=== PATIENT | male | born 1980 | race African-American/Black ===

== ENCOUNTER 2020-08-23 16:39 | Emergency (ER) | payer OTHER, BC ==
[2020-08-23] MEDS ORDERED: Sodium Chloride 0.9% 10 ML Syringe FLUSH PRN (18:11)
[2020-08-23] MEDS ORDERED: Iopamidol 612 MG/ML 100 ML Bottle IVPUSH ONE (18:11)
--- NOTE | 2020-08-23 19:00 | CT ---
CT cervical spine Technique: Multiple axial sections were obtained from above C1 inferiorly to the mid T3 level. Reconstructed sagittal and coronal images were obtained. Findings: Vertebral body heights and disc spaces are maintained. No bony central or bony neural foraminal stenosis is seen. No fracture is appreciated. Minimal ligamentum nuchal calcification is seen. No abnormal subluxation is seen. Impression: 1. Nothing acute is identified on CT study of the cervical spine. Diagnostic code #2 Study was dictated in MDT
--- NOTE | 2020-08-23 19:03 | CT ---
Head CT Technique: Multiple axial sections to the brain were obtained. Intravenous contrast was not utilized. Comparison: No prior intracranial imaging is available. Findings: Several cortical calcifications are seen within the brain believed to be dystrophic and old. Ventricles along with basal cisterns and sulci over the convexities are within normal limits for the patient's age. No abnormal parenchymal densities are seen. No evidence of intracranial hemorrhage. No midline shift or mass effect is appreciated. Visualized mastoid sinuses are clear. Minimal mucosal thickening within the inferior right maxillary sinus is seen. No acute paranasal sinus findings are appreciated. No acute calvarial finding is seen. Impression: 1. Findings as noted above believed to be incidental. 2. Nothing acute is appreciated on noncontrast head CT exam. Diagnostic code #2 Study was dictated in MDT
--- NOTE | 2020-08-23 19:08 | CT ---
CT chest Technique: Multiple axial sections were obtained from above the lung apices inferiorly through the lung bases. Intravenous contrast was utilized. Comparison: No prior chest imaging is available. Findings: Mediastinum and hilar regions show no adenopathy. No axillary adenopathy is seen. No pericardial thickening is seen. Lungs are clear with no acute parenchymal change. No pulmonary contusions or pleural effusions are noted. Bone window settings were reviewed. No discrete rib fracture is seen. Vertebral body heights and disc spaces are maintained. Lateral reconstructed views of the sternum show no definite fracture. Liver shows fatty infiltration without discrete focal abnormality. Motion artifact is present. Spleen appears normal. Kidneys show symmetric contrast enhancement. Slight fullness within the left adrenal gland which is likely benign. Right adrenal gland is normal. Pancreas shows no discrete abnormality. Aorta shows no aneurysm. No calcified gallstones are seen within the gallbladder. No retroperitoneal adenopathy or mesenteric abnormalities are seen. Appendix is seen which is normal. No pelvic mass or adenopathy is seen. Delayed images shows contrast within the distal ureters and bladder with no contrast extravasation being seen. Bone window settings were reviewed which shows the vertebral body heights and disc spaces to appear maintained. No discrete fracture within the pelvis is appreciated. Impression: 1. Motion artifact. Within this limitation, fatty infiltration is seen within the liver. No definite acute abnormality is appreciated on CT study of the abdomen and pelvis. Diagnostic code #2 Study was dictated in MDT
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
--- NOTE | 2020-08-23 22:21 | CR ---
Left femur: AP and lateral views left femur were obtained. Comparison: No prior femur study. No fracture or other bony abnormality is appreciated. Impression: 1. No abnormality is appreciated on 2 view left femur exam. Diagnostic code #1 Study was dictated in MDT
== END 2020-08-23 22:02 | disposition home or self-care (01) ==
LOC: JD.ED 16:39
DX: S16.1XXA Strain of muscle, fascia and tendon at neck level, initial encounter (principal); S70.12XA Contusion of left thigh, initial encounter; S20.212A Contusion of left front wall of thorax, initial encounter; F17.210 Nicotine dependence, cigarettes, uncomplicated; V54.5XXA Driver of pick-up truck or van injured in collision with heavy transport vehicle or bus in traffic accident, initial encounter
CPT/HCPCS: 36415; 70450; 71260; 72125; 73552; 74177; 80053; 85025; 99285; Q9967; 99283